=== PATIENT | male | born 1975 | race Caucasian/White ===

== ENCOUNTER 2016-10-16 07:58 | Outpatient (CLI) | payer BC ==
[~2016-10-16] VITALS: Ht 172.7 cm; Wt 56.8 kg
[~2016-10-16 07:58] MED LIST: ASACOL; ASACOL HD800 MG PO; AZULFIDINE PO; BALSALAZIDE DI750 MG PO; BENADRYL25 M1 PO; BENADRYL25 M2 PO; IMURAN50 MG PO; LOMOTIL 0.025 M1 TAB PO; PREDNISONE20 MG PO; TYLENOL 500MG500 MG PO
[2016-10-16 09:01] LABS: HEMATOCRIT 44.3 % (42.0-52.0); HEMOGLOBIN 14.8 g/dl (13.5-18.0); MEAN CELL VOLUME 104 fl (80.0-100.0); MEAN CORPUSCULAR HEMOGLOBIN 35 pg (27.0-31.0); MEAN CORPUSCULAR HGB CONC 33 g/dl (33.0-37.0); MEAN PLATELET VOLUME 10.5 fl (7.4-10.4); PLATELET COUNT 215 K/mm3 (130-400); RED BLOOD COUNT 4.28 M/mm3 (4.20-5.60); REDCELL DISTRIBUTION WIDTH-CV 13.5 % (11.5-14.5); WHITE BLOOD COUNT 6.1 K/mm3 (4.8-10.8)
[2016-10-16 09:15] LABS: ADJUSTED CALCIUM 9.7 mg/dL (8.4-10.2); ALBUMIN 4.5 gm/dL (3.5-5.0); BILIRUBIN,TOTAL 1.3 mg/dL (0.0-1.0); CALCIUM 10.1 mg/dL (8.4-10.2); CREATININE, serum 0.72 mg/dL (0.66-1.25); POTASSIUM 3.8 mmol/L (3.4-5.0); TOTAL PROTEIN 8.5 gm/dL (6.4-8.2)
[2016-10-16 09:38] VITALS: BP 108/60; PULSE 79; TEMP 97.9
[2016-10-16 10:15] VITALS: BP 104/58; PULSE 78; TEMP 98.4
[2016-10-16 10:52] VITALS: BP 110/61; PULSE 79; TEMP 98.6
[2016-10-16 11:30] VITALS: BP 101/70; PULSE 80
[2016-10-16 11:49] VITALS: BP 90/52; PULSE 78; TEMP 98.2
== END 2016-10-16 12:38 | disposition home or self-care (01) ==
LOC: EUO 07:58
PROVIDERS: Internal Medicine Gastroenterology
DX: K50.90 Crohn's disease, unspecified, without complications (principal)
CPT/HCPCS: J1200; J1745; J2930; J7050

== ENCOUNTER 2016-12-11 07:41 | Outpatient (CLI) | payer BC ==
[~2016-12-11] VITALS: Ht 172.7 cm; Wt 56.8 kg
[2016-12-11 08:03] LABS: HEMATOCRIT 41.3 % (42.0-52.0); HEMOGLOBIN 14.2 g/dl (13.5-18.0); MEAN CELL VOLUME 102 fl (80.0-100.0); MEAN CORPUSCULAR HEMOGLOBIN 35 pg (27.0-31.0); MEAN CORPUSCULAR HGB CONC 34 g/dl (33.0-37.0); MEAN PLATELET VOLUME 10.8 fl (7.4-10.4); PLATELET COUNT 197 K/mm3 (130-400); RED BLOOD COUNT 4.06 M/mm3 (4.20-5.60); REDCELL DISTRIBUTION WIDTH-CV 12.9 % (11.5-14.5); WHITE BLOOD COUNT 4.3 K/mm3 (4.8-10.8)
[2016-12-11 08:21] LABS: ADJUSTED CALCIUM 9.3 mg/dL (8.4-10.2); ALBUMIN 4.4 gm/dL (3.5-5.0); BILIRUBIN,TOTAL 1.4 mg/dL (0.0-1.0); CALCIUM 9.6 mg/dL (8.4-10.2); CREATININE, serum 0.72 mg/dL (0.66-1.25); POTASSIUM 4.1 mmol/L (3.4-5.0)
[2016-12-11 08:45] VITALS: BP 104/62; PULSE 78; TEMP 98.3
[2016-12-11 09:15] VITALS: BP 108/67; PULSE 71; TEMP 97.3
[2016-12-11 09:45] VITALS: BP 102/63; PULSE 67; TEMP 98
[2016-12-11 10:15] VITALS: BP 107/65; PULSE 70; TEMP 97.9
[2016-12-11 10:45] VITALS: BP 97/62; PULSE 78; TEMP 97.8
== END 2016-12-11 11:15 | disposition home or self-care (01) ==
LOC: EUO 07:41
PROVIDERS: Internal Medicine Gastroenterology
DX: K50.90 Crohn's disease, unspecified, without complications (principal)
CPT/HCPCS: J1200; J1745; J2930; J7050

== ENCOUNTER 2017-02-05 07:56 | Outpatient (CLI) | payer BC ==
[~2017-02-05] VITALS: Ht 172.7 cm; Wt 60.0 kg
[2017-02-05 08:21] LABS: HEMATOCRIT 43.5 % (42.0-52.0); HEMOGLOBIN 14.8 g/dl (13.5-18.0); MEAN CELL VOLUME 102 fl (80.0-100.0); MEAN CORPUSCULAR HEMOGLOBIN 35 pg (27.0-31.0); MEAN CORPUSCULAR HGB CONC 34 g/dl (33.0-37.0); PLATELET COUNT 199 K/mm3 (130-400); RED BLOOD COUNT 4.28 M/mm3 (4.20-5.60); REDCELL DISTRIBUTION WIDTH-CV 13.2 % (11.5-14.5)
[2017-02-05 08:31] LABS: ADJUSTED CALCIUM 9.6 mg/dL (8.4-10.2); ALBUMIN 4.2 gm/dL (3.5-5.0); BILIRUBIN,TOTAL 1.4 mg/dL (0.0-1.0); CALCIUM 9.8 mg/dL (8.4-10.2); CREATININE, serum 0.72 mg/dL (0.66-1.25); POTASSIUM 4.1 mmol/L (3.4-5.0); TOTAL PROTEIN 7.7 gm/dL (6.4-8.2)
[2017-02-05 09:10] VITALS: BP 102/59; PULSE 76; TEMP 97.7
[2017-02-05 09:35] VITALS: BP 103/61; PULSE 67; TEMP 98
[2017-02-05 10:10] VITALS: BP 109/61; PULSE 71; TEMP 98
[2017-02-05 10:40] VITALS: BP 99/56; PULSE 70; TEMP 97.9
[2017-02-05 11:10] VITALS: BP 9/50; PULSE 70; TEMP 98
== END 2017-02-05 12:14 | disposition home or self-care (01) ==
LOC: EUO 07:56
PROVIDERS: Internal Medicine Gastroenterology
DX: K50.90 Crohn's disease, unspecified, without complications (principal)
CPT/HCPCS: J1200; J1745; J2930; J7050

== ENCOUNTER 2017-04-02 08:03 | Outpatient (CLI) | payer BC ==
[~2017-04-02] VITALS: Ht 172.7 cm; Wt 57.8 kg
[2017-04-02 09:14] LABS: HEMATOCRIT 42.2 % (42.0-52.0); HEMOGLOBIN 14.3 g/dl (13.5-18.0); MEAN CELL VOLUME 103 fl (80.0-100.0); MEAN CORPUSCULAR HEMOGLOBIN 35 pg (27.0-31.0); MEAN CORPUSCULAR HGB CONC 34 g/dl (33.0-37.0); MEAN PLATELET VOLUME 10.7 fl (7.4-10.4); PLATELET COUNT 197 K/mm3 (130-400); RED BLOOD COUNT 4.11 M/mm3 (4.20-5.60); REDCELL DISTRIBUTION WIDTH-CV 13.6 % (11.5-14.5); WHITE BLOOD COUNT 4.9 K/mm3 (4.8-10.8)
[2017-04-02 09:20] LABS: ALBUMIN 4.4 gm/dL (3.5-5.0); BILIRUBIN,TOTAL 1.2 mg/dL (0.0-1.0); CALCIUM 9.3 mg/dL (8.4-10.2); CREATININE, serum 0.7 mg/dL (0.66-1.25); POTASSIUM 4.1 mmol/L (3.4-5.0); TOTAL PROTEIN 7.7 gm/dL (6.4-8.2)
[2017-04-02 10:15] VITALS: BP 100/63; PULSE 78; TEMP 98.2
[2017-04-02 10:30] VITALS: BP 104/66; PULSE 69; TEMP 98.2
[2017-04-02 11:00] VITALS: BP 102/57; PULSE 72; TEMP 98.4
[2017-04-02 12:10] VITALS: BP 100/54; PULSE 74; TEMP 97.7
[2017-04-02 12:30] VITALS: BP 100/56; PULSE 71; TEMP 98.7
== END 2017-04-02 12:40 | disposition home or self-care (01) ==
LOC: EUO 08:03
PROVIDERS: Physician Assistant
DX: K50.90 Crohn's disease, unspecified, without complications (principal); Z79.899 Other long term (current) drug therapy
CPT/HCPCS: J1200; J1745; J2930; J7050

== ENCOUNTER 2017-05-28 09:48 | Outpatient (CLI) | payer BC ==
[~2017-05-28] VITALS: Ht 172.7 cm; Wt 57.3 kg
[2017-05-28 10:13] LABS: HEMOGLOBIN 14.6 g/dl (13.5-18.0); MEAN CELL VOLUME 103 fl (80.0-100.0); MEAN CORPUSCULAR HEMOGLOBIN 35 pg (27.0-31.0); MEAN CORPUSCULAR HGB CONC 34 g/dl (33.0-37.0); MEAN PLATELET VOLUME 10.4 fl (7.4-10.4); PLATELET COUNT 260 K/mm3 (130-400); RED BLOOD COUNT 4.19 M/mm3 (4.20-5.60); REDCELL DISTRIBUTION WIDTH-CV 13.3 % (11.5-14.5); WHITE BLOOD COUNT 5.3 K/mm3 (4.8-10.8)
[2017-05-28 10:20] LABS: ALBUMIN 4.7 gm/dL (3.5-5.0); BILIRUBIN,TOTAL 1.5 mg/dL (0.0-1.0); CALCIUM 9.6 mg/dL (8.4-10.2); CREATININE, serum 0.73 mg/dL (0.66-1.25); POTASSIUM 4.2 mmol/L (3.4-5.0); TOTAL PROTEIN 8.2 gm/dL (6.4-8.2)
[2017-05-28 11:32] VITALS: BP 112/67; PULSE 74; TEMP 97.9
[2017-05-28 12:00] VITALS: BP 103/62; PULSE 72
[2017-05-28 12:30] VITALS: BP 101/63; PULSE 77
[2017-05-28 13:00] VITALS: BP 102/61; PULSE 72
== END 2017-05-29 07:35 | disposition home or self-care (01) ==
LOC: EUO 09:48
PROVIDERS: Physician Assistant
DX: K50.90 Crohn's disease, unspecified, without complications (principal); Z79.899 Other long term (current) drug therapy
CPT/HCPCS: J1200; J1745; J2930; J7050

== ENCOUNTER → 2017-07-24 | Outpatient (CLI) | payer OTHER ==
[~2017-07-24] VITALS: Ht 172.7 cm; Wt 57.6 kg
[2017-07-24 14:21] LABS: HEMOGLOBIN 14.1 g/dl (13.5-18.0); MEAN CELL VOLUME 104 fl (80.0-100.0); MEAN CORPUSCULAR HEMOGLOBIN 35 pg (27.0-31.0); MEAN CORPUSCULAR HGB CONC 34 g/dl (33.0-37.0); PLATELET COUNT 206 K/mm3 (130-400); RED BLOOD COUNT 4.03 M/mm3 (4.20-5.60); WHITE BLOOD COUNT 4.6 K/mm3 (4.8-10.8)
[2017-07-24 14:52] LABS: ADJUSTED CALCIUM 9.1 mg/dL (8.4-10.2); ALBUMIN 4.6 gm/dL (3.5-5.0); BILIRUBIN,TOTAL 1.3 mg/dL (0.0-1.0); CALCIUM 9.6 mg/dL (8.4-10.2); CREATININE, serum 0.88 mg/dL (0.66-1.25); POTASSIUM 4.3 mmol/L (3.4-5.0); TOTAL PROTEIN 7.8 gm/dL (6.4-8.2)
[2017-07-24 15:50] VITALS: BP 104/60; PULSE 78; TEMP 97.9
[2017-07-24 16:20] VITALS: BP 96/59; PULSE 70; TEMP 97.8
[2017-07-24 16:50] VITALS: BP 102/58; PULSE 77; TEMP 98.1
[2017-07-24 17:20] VITALS: BP 107/50; PULSE 77; TEMP 98
[2017-07-24 17:50] VITALS: BP 107/60; PULSE 77; TEMP 97.9
== END ==
LOC: EUO 13:53
PROVIDERS: Physician Assistant
DX: K50.90 Crohn's disease, unspecified, without complications (principal); Z79.899 Other long term (current) drug therapy
CPT/HCPCS: J1200; J1745; J2930; J7050

== ENCOUNTER 2017-09-18 14:01 | Outpatient (CLI) | payer OTHER ==
[2017-09-18] VITALS (7 sets, daily range): BP systolic 93–104; BP diastolic 55–66; PULSE 73–84; TEMP 97.8–97.9
[~2017-09-18] VITALS: Ht 172.7 cm; Wt 58.7 kg
[2017-09-18 14:23] LABS: HEMATOCRIT 43.4 % (42.0-52.0); HEMOGLOBIN 14.7 g/dl (13.5-18.0); MEAN CELL VOLUME 103 fl (80.0-100.0); MEAN CORPUSCULAR HEMOGLOBIN 35 pg (27.0-31.0); MEAN CORPUSCULAR HGB CONC 34 g/dl (33.0-37.0); MEAN PLATELET VOLUME 10.8 fl (7.4-10.4); PLATELET COUNT 197 K/mm3 (130-400); RED BLOOD COUNT 4.23 M/mm3 (4.20-5.60); WHITE BLOOD COUNT 4.2 K/mm3 (4.8-10.8)
[2017-09-18 14:31] LABS: ALBUMIN 4.7 gm/dL (3.5-5.0); BILIRUBIN,TOTAL 1.3 mg/dL (0.0-1.0); CALCIUM 9.6 mg/dL (8.4-10.2); CREATININE, serum 0.92 mg/dL (0.66-1.25); POTASSIUM 3.9 mmol/L (3.4-5.0)
== END 2017-09-18 18:44 | disposition home or self-care (01) ==
LOC: EUO 14:01
PROVIDERS: Physician Assistant
DX: K50.90 Crohn's disease, unspecified, without complications (principal); Z79.899 Other long term (current) drug therapy
CPT/HCPCS: J1200; J1745; J2930; J7050

== ENCOUNTER 2018-01-01 09:51 | Outpatient (CLI) | payer OTHER ==
[~2018-01-01] VITALS: Ht 172.7 cm; Wt 56.8 kg
[~2018-01-01 09:51] MED LIST changes: +IMURAN 50MG TAB50 MG PO; -IMURAN50 MG PO
[2018-01-01 10:53] LABS: HEMATOCRIT 44.7 % (42.0-52.0); HEMOGLOBIN 14.9 g/dl (13.5-18.0); MEAN CELL VOLUME 105 fl (80.0-100.0); MEAN CORPUSCULAR HEMOGLOBIN 35 pg (27.0-31.0); MEAN CORPUSCULAR HGB CONC 33 g/dl (33.0-37.0); MEAN PLATELET VOLUME 9.9 fl (7.4-10.4); PLATELET COUNT 207 K/mm3 (130-400); RED BLOOD COUNT 4.26 M/mm3 (4.20-5.60); REDCELL DISTRIBUTION WIDTH-CV 13.2 % (11.5-14.5)
[2018-01-01 11:01] LABS: BILIRUBIN,TOTAL 0.8 mg/dL (0.0-1.0); CALCIUM 9.2 mg/dL (8.4-10.2); CREATININE, serum 0.73 mg/dL (0.66-1.25); POTASSIUM 3.9 mmol/L (3.4-5.0); TOTAL PROTEIN 7.4 gm/dL (6.4-8.2)
[2018-01-01 11:55] VITALS: BP 119/74; PULSE 74; TEMP 97.9
[2018-01-01 12:25] VITALS: BP 112/69; PULSE 72; TEMP 98.1
[2018-01-01 12:55] VITALS: BP 117/66; PULSE 80; TEMP 98.2
[2018-01-01 13:25] VITALS: BP 107/62; PULSE 77; TEMP 98.4
[2018-01-01 13:59] VITALS: BP 115/66; PULSE 80; TEMP 98.2
== END 2018-01-01 15:24 | disposition home or self-care (01) ==
LOC: EUO 09:51
PROVIDERS: Internal Medicine Gastroenterology
DX: K50.90 Crohn's disease, unspecified, without complications (principal); Z79.899 Other long term (current) drug therapy
CPT/HCPCS: J1200; J1745; J2920; J7050; Q5102-ZB

== ENCOUNTER 2018-03-12 09:39 | Outpatient (CLI) | payer OTHER ==
[~2018-03-12] VITALS: Ht 165.1 cm; Wt 58.2 kg
[2018-03-12 10:04] VITALS: BP 112/65; PULSE 76; TEMP 98.1
[2018-03-12 10:33] LABS: HEMATOCRIT 41.2 % (42.0-52.0); HEMOGLOBIN 14.1 g/dl (13.5-18.0); MEAN CELL VOLUME 99 fl (80.0-100.0); MEAN CORPUSCULAR HEMOGLOBIN 34 pg (27.0-31.0); MEAN CORPUSCULAR HGB CONC 34 g/dl (33.0-37.0); MEAN PLATELET VOLUME 10.6 fl (7.4-10.4); PLATELET COUNT 211 K/mm3 (130-400); RED BLOOD COUNT 4.18 M/mm3 (4.20-5.60); REDCELL DISTRIBUTION WIDTH-CV 12.4 % (11.5-14.5)
[2018-03-12 10:41] LABS: ALBUMIN 3.9 gm/dL (3.5-5.0); BILIRUBIN,TOTAL 0.9 mg/dL (0.0-1.0); CALCIUM 9.5 mg/dL (8.4-10.2); CREATININE, serum 0.84 mg/dL (0.66-1.25); POTASSIUM 4.2 mmol/L (3.4-5.0); TOTAL PROTEIN 7.5 gm/dL (6.4-8.2)
[2018-03-12 11:14] VITALS: BP 145/52; PULSE 66; TEMP 98
[2018-03-12 11:15] VITALS: BP 177/100; PULSE 89; TEMP 98
[2018-03-12 11:30] VITALS: BP 146/54; BP 175/110; PULSE 73; PULSE 90; TEMP 98
[2018-03-12 12:00] VITALS: BP 141/55; BP 173/102; PULSE 66; PULSE 88; TEMP 98
== END 2018-03-12 14:00 | disposition home or self-care (01) ==
LOC: EUO 09:39
PROVIDERS: Physician Assistant
DX: K50.90 Crohn's disease, unspecified, without complications (principal); Z79.899 Other long term (current) drug therapy
CPT/HCPCS: J1200; J2930; J7050; Q5103

== ENCOUNTER 2018-05-13 10:48 | Outpatient (CLI) | payer OTHER ==
[~2018-05-13] VITALS: Ht 165.1 cm; Wt 58.1 kg
[2018-05-13 11:17] LABS: HEMATOCRIT 44.6 % (42.0-52.0); HEMOGLOBIN 14.6 g/dl (13.5-18.0); MEAN CELL VOLUME 103 fl (80.0-100.0); MEAN CORPUSCULAR HEMOGLOBIN 34 pg (27.0-31.0); MEAN CORPUSCULAR HGB CONC 33 g/dl (33.0-37.0); MEAN PLATELET VOLUME 10.9 fl (7.4-10.4); PLATELET COUNT 221 K/mm3 (130-400); RED BLOOD COUNT 4.33 M/mm3 (4.20-5.60); REDCELL DISTRIBUTION WIDTH-CV 13.3 % (11.5-14.5)
[2018-05-13 11:22] LABS: ALBUMIN 4.7 gm/dL (3.5-5.0); BILIRUBIN,TOTAL 0.6 mg/dL (0.0-1.0); CALCIUM 9.4 mg/dL (8.4-10.2); CREATININE, serum 0.77 mg/dL (0.66-1.25); POTASSIUM 4.1 mmol/L (3.4-5.0); TOTAL PROTEIN 8.6 gm/dL (6.4-8.2)
[2018-05-13 12:28] VITALS: BP 116/77; PULSE 72; TEMP 97.9
[2018-05-13 12:58] VITALS: BP 112/74; PULSE 71; TEMP 97.1
[2018-05-13 13:40] VITALS: BP 104/66; PULSE 68
[2018-05-13 14:10] VITALS: BP 106/65; PULSE 61
== END 2018-05-13 14:45 | disposition home or self-care (01) ==
LOC: EUO 10:48
PROVIDERS: Internal Medicine Gastroenterology
DX: K50.90 Crohn's disease, unspecified, without complications (principal); Z79.899 Other long term (current) drug therapy
CPT/HCPCS: J1200; J2930; J7050

== ENCOUNTER 2018-09-02 12:58 | Outpatient (CLI) | payer OTHER ==
[~2018-09-02] VITALS: Ht 165.1 cm; Wt 59.4 kg
[2018-09-02 13:42] LABS: HEMATOCRIT 43.3 % (42.0-52.0); HEMOGLOBIN 14.5 g/dl (13.5-18.0); MEAN CELL VOLUME 101 fl (80.0-100.0); MEAN CORPUSCULAR HEMOGLOBIN 34 pg (27.0-31.0); MEAN CORPUSCULAR HGB CONC 34 g/dl (33.0-37.0); MEAN PLATELET VOLUME 9.9 fl (7.4-10.4); PLATELET COUNT 241 K/mm3 (130-400); RED BLOOD COUNT 4.31 M/mm3 (4.20-5.60); REDCELL DISTRIBUTION WIDTH-CV 13.2 % (11.5-14.5)
[2018-09-02 13:52] LABS: ALBUMIN 4.3 gm/dL (3.5-5.0); BILIRUBIN,TOTAL 0.6 mg/dL (0.0-1.0); CALCIUM 9.6 mg/dL (8.4-10.2); CREATININE, serum 0.72 mg/dL (0.66-1.25); POTASSIUM 4.3 mmol/L (3.4-5.0); TOTAL PROTEIN 7.9 gm/dL (6.4-8.2)
[2018-09-02 14:33] VITALS: BP 105/73; PULSE 80; TEMP 97.7
== END 2018-09-02 16:32 | disposition home or self-care (01) ==
LOC: EUO 12:58
PROVIDERS: Physician Assistant
DX: K50.90 Crohn's disease, unspecified, without complications (principal)
CPT/HCPCS: J1200; J2920; J7050; Q5103

== ENCOUNTER 2019-01-06 14:35 | Outpatient (CLI) | payer OTHER ==
[~2019-01-06] VITALS: Ht 165.1 cm; Wt 56.4 kg
[2019-01-06 15:31] LABS: HEMATOCRIT 41.3 % (42.0-52.0); HEMOGLOBIN 13.8 g/dl (13.5-18.0); MEAN CELL VOLUME 102 fl (80.0-100.0); MEAN CORPUSCULAR HEMOGLOBIN 34 pg (27.0-31.0); MEAN CORPUSCULAR HGB CONC 33 g/dl (33.0-37.0); MEAN PLATELET VOLUME 9.7 fl (7.4-10.4); PLATELET COUNT 304 K/mm3 (130-400); RED BLOOD COUNT 4.04 M/mm3 (4.20-5.60); REDCELL DISTRIBUTION WIDTH-CV 13.9 % (11.5-14.5)
[2019-01-06 15:47] LABS: ALBUMIN 4.1 gm/dL (3.5-5.0); BILIRUBIN,TOTAL 0.8 mg/dL (0.0-1.0); CALCIUM 9.5 mg/dL (8.4-10.2); CREATININE, serum 0.6 (0.66-1.25); TOTAL PROTEIN 7.8 gm/dL (6.4-8.2)
[2019-01-06 15:55] LABS: POTASSIUM 3.8 mmol/L (3.4-5.0)
[2019-01-06 16:47] VITALS: BP 117/68; PULSE 79; TEMP 98.2
[2019-01-06] MEDS ORDERED: PREDNISONE20 MG PO (16:56)
[2019-01-06 17:17] VITALS: BP 116/66; PULSE 78
[2019-01-06 17:47] VITALS: BP 108/67; PULSE 72; TEMP 98.2
[2019-01-06 18:17] VITALS: BP 116/63; PULSE 75; TEMP 98.4
--- NOTE | 2019-01-06 18:26 | NUR ---
Report given to Ana Melo.
== END 2019-03-11 09:27 | disposition home or self-care (01) ==
LOC: EUO 14:35
PROVIDERS: Internal Medicine Gastroenterology
DX: K50.90 Crohn's disease, unspecified, without complications (principal); Z79.899 Other long term (current) drug therapy
CPT/HCPCS: J1200; J1745; J7050

== ENCOUNTER → 2019-02-25 | Outpatient (CLI) | payer OTHER | LOC: COL.RAD 07:30 | DX: C18.9 Malignant neoplasm of colon, unspecified (principal); C19 Malignant neoplasm of rectosigmoid junction; K51.90 Ulcerative colitis, unspecified, without complications; K92.1 Melena; K62.89 Other specified diseases of anus and rectum; R59.0 Localized enlarged lymph nodes; R16.0 Hepatomegaly, not elsewhere classified | CPT/HCPCS: Q9967 ==

== ENCOUNTER 2019-05-28 16:13 | Inpatient (IN) | payer OTHER ==
[~2019-05-28] VITALS: Ht 167.6 cm; Wt 50.3 kg
[2019-05-28] VITALS (153 sets, daily range): BP systolic 97–106; BP diastolic 60–63; PULSE 113–122; TEMP 99.1–102.3; O2SAT 66–100
[2019-05-28 16:56] LABS: HEMOGLOBIN 10.9 g/dl (13.5-18.0); MEAN CELL VOLUME 98 fl (80.0-100.0); MEAN CORPUSCULAR HEMOGLOBIN 32 pg (27.0-31.0); MEAN CORPUSCULAR HGB CONC 32 g/dl (33.0-37.0); MEAN PLATELET VOLUME 9.5 fl (7.4-10.4); PLATELET COUNT 170 K/mm3 (130-400); RED BLOOD COUNT 3.46 M/mm3 (4.20-5.60); REDCELL DISTRIBUTION WIDTH-CV 15.5 % (11.5-14.5)
[2019-05-28 17:12] LABS: BILIRUBIN,TOTAL 0.4 mg/dL (0.0-1.0); CALCIUM 9.4 mg/dL (8.4-10.2); CREATININE, serum 1.07 (0.66-1.25); POTASSIUM 3.8 mmol/L (3.4-5.0)
[2019-05-28] MEDS ORDERED: DAZIDOX10 MG PO (17:19)
[2019-05-28] MEDS ORDERED: TYLENOL 500MG500 MG PO (17:20)
[2019-05-28] MEDS ORDERED: FLEXERIL 1010 MG/TAB PO (17:20)
[2019-05-28] MEDS ORDERED: NEURONTIN300 MG/CAP PO (17:21)
[2019-05-28 17:24] LABS: HEMATOCRIT 33.9 % (42.0-52.0)
[2019-05-28 18:18] LABS: BAND 6 % (0-10); LYMPHOCYTE 7 % (20.0-51.0); METAMYELOCYTE 1 % (0-0); NEUTROPHILS 86 % (42.0-75.2); PLATELET ESTIMATE NORMAL (NORMAL)
[2019-05-28 18:20] LABS: TEAR DROP CELLS 1+
--- NOTE | 2019-05-28 20:21 | NUR ---
Dr. Julian butler. Orders as entered CPOE.
[2019-05-28 20:55] LABS: COLLECTION METHOD CLEAN CATCH
[2019-05-28 21:18] LABS: MUCOUS Present /lpf; PH 5 (5-8); SQUAMOUS EPITHELIAL 0-2 /hpf; URINE APPEARANCE Clear; URINE BACTERIA None Seen /hpf; URINE BILIRUBIN Negative (NEGATIVE); URINE BLOOD Negative (NEGATIVE); URINE COLOR Yellow; URINE GLUCOSE Negative (NEGATIVE); URINE KETONE Negative (NEGATIVE); URINE LEUKOCYTE ESTERASE Negative (NEGATIVE); URINE NITRATE Negative (NEGATIVE); URINE PROTEIN(semi-quant) Negative (NEGATIVE); URINE RBC 0-2 /hpf; URINE UROBILINOGEN Negative (NEGATIVE)
[2019-05-29] VITALS (763 sets, daily range): BP systolic 112–141; BP diastolic 68–81; PULSE 80–110; TEMP 99.2–100; O2SAT 52–100
[2019-05-29 05:16] LABS: HEMOGLOBIN 10.1 g/dl (13.5-18.0); MEAN CELL VOLUME 100 fl (80.0-100.0); MEAN CORPUSCULAR HEMOGLOBIN 32 pg (27.0-31.0); MEAN CORPUSCULAR HGB CONC 32 g/dl (33.0-37.0); MEAN PLATELET VOLUME 9.4 fl (7.4-10.4); PLATELET COUNT 156 K/mm3 (130-400); RED BLOOD COUNT 3.17 M/mm3 (4.20-5.60); REDCELL DISTRIBUTION WIDTH-CV 16.4 % (11.5-14.5)
[2019-05-29 05:24] LABS: ALBUMIN 3.3 gm/dL (3.5-5.0); BILIRUBIN,TOTAL 0.4 mg/dL (0.0-1.0); CALCIUM 8.9 mg/dL (8.4-10.2); CREATININE, serum 1.14 (0.66-1.25); POTASSIUM 4.4 mmol/L (3.4-5.0)
[2019-05-29 05:33] LABS: HEMATOCRIT 31.7 % (42.0-52.0)
[2019-05-29 05:55] LABS: BAND 31 % (0-10); LYMPHOCYTE 2 % (20.0-51.0); NEUTROPHILS 65 % (42.0-75.2)
[2019-05-29 05:56] LABS: ANISOCYTOSIS 1+; PLATELET ESTIMATE NORMAL (NORMAL)
--- NOTE | 2019-05-29 06:32 | NUR ---
Vancomycin Initial Dosing Pharmacy Note Ordering provider: Alan Jordan MD Indication/duration: severe sepsis with unknown cause Relevant comorbidities: colorectal CA with mets on chemotherapy LABS: Febrile (Tmax 102.9F), WBC 24.1, SCr 1.14, CrCl~54, GFR 70 MICRO: Blood cx pending Recommendation: Vancomycin 750 mg IV q12h (~15 mg/kg/dose). Will check Vancomycin trough level prior to 4th total dose on 05/30/19 @0630. Pharmacy will continue to monitor. Loading dose: 1 gm x1 Maintenance dose: 750 mg every 12 hours Trough goal: 15-20 ug/mL
--- NOTE | 2019-05-29 08:30 | NUR ---
PT SUDDENLY BEGAN VOMITING. DR BROWNING NOTIFIED IN ORDER TO OBTAIN ANTIEMETIC MEDICATION. JACQUE ORDERED.
--- NOTE | 2019-05-29 09:36 | NUR ---
PT HAS COLOSTOMY BAG PRESENT TO LEFT LOWER QUAD OF ABD HE CARES FOR HIMSELF INDEPENDENTLY. STOOL IS SOFT BROWN.
--- NOTE | 2019-05-29 12:13 | NUR ---
SW met with patient to discuss discharge planning. Patient lives independently at home with his . Patient's PCP is Dr Riddle here in [place]. Patient's preferred pharmacy is [facility]. Patient and deny diddiculties otaining or paying for medications. Patient reports he has an ostomy bag and supplies. Patient has a cane but does not use it often. Patient is independent with ADLs and cares for his ostomy bag on his own. Patient does not use any home health services. Patient reports he is in the process of completing advanced directive/DPOA-HC. SW does not anticipate any discharge needs but will continue to follow.
--- NOTE | 2019-05-29 18:09 | NUR ---
PT CONTINUES TO BE RECEIVING DIALYSIS IN IMCU ROOM 17
--- NOTE | 2019-05-29 20:49 | NUR ---
PT ALERT AND ORIENTED X4, COMPLAINS OF PAIN 7/10 IN MID ABDOMEN. PRN DILAUDID GIVEN. PT ALSO NAUSEATED AND VOMITED, PRN ZOFRAN GIVEN WELL. PT ON ROOM AIR, INDEPENDENT TO BATHROOM WITH STANDBY ASSIST. PT DRAINS LLQ COLOSTOMY INDEPENDENTLY. PT COMPLAINING OF DILAUDID 0.5 MG NOT WORKING, REQUESTING IF HE COULD GET 1 MG INSTEAD, DR. GONZALES NOTIFIED AND ORDERED 1 MG Q2HR PRN. WILL CONTINUE TO MONITOR PT.
[2019-05-30] VITALS (628 sets, daily range): BP systolic 126–134; BP diastolic 82–92; PULSE 61–99; TEMP 98–98.9; O2SAT 75–100
[2019-05-30 05:17] LABS: MEAN CELL VOLUME 99 fl (80.0-100.0); MEAN CORPUSCULAR HEMOGLOBIN 31 pg (27.0-31.0); MEAN CORPUSCULAR HGB CONC 31 g/dl (33.0-37.0); PLATELET COUNT 136 K/mm3 (130-400); REDCELL DISTRIBUTION WIDTH-CV 16.4 % (11.5-14.5)
[2019-05-30 05:19] LABS: HEMATOCRIT 31.8 % (42.0-52.0)
[2019-05-30 05:27] LABS: ALBUMIN 3.1 gm/dL (3.5-5.0); BILIRUBIN,TOTAL 0.5 mg/dL (0.0-1.0); CALCIUM 8.9 mg/dL (8.4-10.2); CREATININE, serum 0.96 (0.66-1.25); POTASSIUM 3.9 mmol/L (3.4-5.0); TOTAL PROTEIN 6.7 gm/dL (6.4-8.2)
[2019-05-30 05:31] LABS: ANISOCYTOSIS 1+; BAND 8 % (0-10); BASOPHIL 1 % (0-2); HYPOCHROMIA 1+; LYMPHOCYTE 4 % (20.0-51.0); NEUTROPHILS 85 % (42.0-75.2); PLATELET ESTIMATE NORMAL (NORMAL)
[2019-05-30 05:32] LABS: OVALOCYTES 1+; SPHEROCYTE 1+
--- NOTE | 2019-05-30 07:43 | NUR ---
VANCT TGH = 12.5 W/750 Q12H INCREASE DOSE TO 1GM Q12H SCR = 0.9 CRCL~65 ML/MIN
--- NOTE | 2019-05-30 07:44 | NUR ---
VANC TGH = 12.5 W/750MG Q12H WILL INCREASE DOSE TO 1GM Q12H SCR 0.9 CRCL~65
--- NOTE | 2019-05-30 10:10 | NUR ---
Initial visit attempt; Patient sleeping, Tray Packer will keep Brenden in her prayers.
--- NOTE | 2019-05-30 11:02 | NUR ---
MD Thuy updated via telephone
--- NOTE | 2019-05-30 13:19 | NUR ---
TARYN attended clinical rounds. Dr Manzano is consulting the infectious disease doctor to give recommendations for antibiotics and GI. Patient is currently receiving chemo treatments and his oncologist is Dr Cottrell. PT and OT will also evaluate patient. TARYN followed up with patient and about discharge plan. SW offered to contact patient's insurance to inquire about his home health benefits. Patient and are agreeable. Patient reports he does not feel that he needs home health services at this time but would like a list of a companies to review with his later today. Patient is not interested in being set up with home health at the time of discharge but will look into home health for the furture. TARYN contacted patient's insurance and obtained home health benefit info for patient. TARYN reported to patient that home health is currently covered at 100%. TARYN will continue to follow.
[2019-05-31] VITALS (379 sets, daily range): BP systolic 109–142; BP diastolic 64–90; PULSE 69–91; TEMP 97.9–99.1; O2SAT 59–100
[2019-05-31 05:22] LABS: BASO # 0.1 (0.0-0.2); BASO % 0.3 % (0.0-2.0); EOS # 0.2 (0.0-0.7); EOS % 1.4 % (0-4.0); GRAN # 13.1 (1.4-6.5); GRAN % 83.6 % (42.2-75.2); HEMATOCRIT 31.8 % (42.0-52.0); HEMOGLOBIN 10.1 g/dl (13.5-18.0); LYMPH % 6.1 % (20.0-51.0); MEAN CELL VOLUME 98 fl (80.0-100.0); MEAN CORPUSCULAR HEMOGLOBIN 31 pg (27.0-31.0); MEAN CORPUSCULAR HGB CONC 32 g/dl (33.0-37.0); MEAN PLATELET VOLUME 9.4 fl (7.4-10.4); MONO # 1.2 (0.1-0.6); MONO % 7.8 % (1.7-9.3); PLATELET COUNT 138 K/mm3 (130-400); RED BLOOD COUNT 3.24 M/mm3 (4.20-5.60); REDCELL DISTRIBUTION WIDTH-CV 16.5 % (11.5-14.5)
[2019-05-31 05:33] LABS: ALBUMIN 3.2 gm/dL (3.5-5.0); BILIRUBIN,TOTAL 0.5 mg/dL (0.0-1.0); CALCIUM 8.9 mg/dL (8.4-10.2); CREATININE, serum 0.95 (0.66-1.25); POTASSIUM 3.8 mmol/L (3.4-5.0); TOTAL PROTEIN 6.6 gm/dL (6.4-8.2)
--- NOTE | 2019-05-31 05:49 | NUR ---
AM WHOLE BLOOD GLUCOSE RESULTS AT 58. PATIENT IS ALERT ORIENTED AND TALKING. HE DENIES NAUSEA OR DIZZINESS. HE IS PROVIDED ORANGE JUICE AND PLAN TO RECHECK FSBS MADE.
--- NOTE | 2019-05-31 06:20 | NUR ---
PATIENT FSBS COMPLETED WITH RESULT OF 59. PATIENT REMAINS ASYMPTOMATIC AND STATES HE ONLY JUST FINISHED PROVIDED ORANGE JUICE. WILL RECHECK IN 15 MINUTES.
--- NOTE | 2019-05-31 08:00 | NUR ---
Shift assessment complete at this time. Plan of care reviewed at bedside with patient. Additional time taken to address any other needs or concerns. Vitals stable at this time. Pt reports moderate pain at pain goal of 5 and declines further intervention at this time. Pt denies any other discomforts. Bed in low position, call light within reach, will continue to monitor.
--- NOTE | 2019-05-31 10:56 | NUR ---
Visited the patient; provided spiritual care and prayed with him,
--- NOTE | 2019-05-31 13:10 | NUR ---
PT ADMITTED TO FLOOR AT THIS TIME. THIS NURSE ADMINISTERED DILADID REQUESTED. PT STILL HAS C/O NAUSEA, INFORMED HIM THAT HE COULD GET SOME PHENAGREN IF THE NAUSEA DOESNT SUBSIDE. NO OTHER NEEDS VOICED AT THIS TIME.
--- NOTE | 2019-05-31 19:00 | NUR ---
PT HAS NEEDED A COUPLE OF DOSES OF DILIADID THIS SHIFT. PREMEDICATED PT WITH ZOFRAN PER REQUEST. THIS NURSE REQUESTED THE DIRECTOR OF HOTEL OPERATIONS TO RECHECK PT BLOOD SUGAR TO ENSURE IT WAS WNL, WAS APPROX 170'S. ABX STARTED THIS EVENING. THIS NURSE RECIEVED CALL FROM LAB ABOUT BLOOD CULTURES, LABORATORY MONITOR NURSE INFOMRED, ASKED NURSE IF SHE COULD PASS IT ON TONIGHT. PT HAD NO OTHER ISSUES OR CONCERNS VOICED.
--- NOTE | 2019-05-31 21:00 | NUR ---
Pt sitting on stool in bathroom. States he is fine. at bedside. Port a cath to upper right chest. IV fluids of D5 1/2NS infusing at 75mL/hr.Voices no c/o. Call light within reach. Will continue to follow.
--- NOTE | 2019-06-01 00:23 | NUR ---
Pt c/o some spasms thruout his colon. Request his Flexeril. Given after Zofran 4mg IV given. Very anxious with his heparin injection. Becomes a little nauseated but let him know that I had just given him his nausea medicine. at bedside.
[2019-06-01 04:00] VITALS: BP 133/79; PULSE 78; TEMP 97.8
--- NOTE | 2019-06-01 04:05 | NUR ---
Pt asleep. Hung antibiotics. Awakens for VS. Denies any needs at present. Call light in reach.
[2019-06-01 06:16] LABS: HEMOGLOBIN 10.5 g/dl (13.5-18.0); MEAN CELL VOLUME 97 fl (80.0-100.0); MEAN CORPUSCULAR HEMOGLOBIN 31 pg (27.0-31.0); MEAN CORPUSCULAR HGB CONC 32 g/dl (33.0-37.0); MEAN PLATELET VOLUME 9.6 fl (7.4-10.4); PLATELET COUNT 143 K/mm3 (130-400); RED BLOOD COUNT 3.36 M/mm3 (4.20-5.60); REDCELL DISTRIBUTION WIDTH-CV 16.4 % (11.5-14.5)
[2019-06-01 06:21] LABS: HEMATOCRIT 32.5 % (42.0-52.0)
[2019-06-01 06:32] LABS: ALBUMIN 3.5 gm/dL (3.5-5.0); BILIRUBIN,TOTAL 0.4 mg/dL (0.0-1.0); CREATININE, serum 0.89 (0.66-1.25); MAGNESIUM 1.8 mg/dL (1.6-2.3); POTASSIUM 3.1 mmol/L (3.4-5.0); TOTAL PROTEIN 7.1 gm/dL (6.4-8.2)
[2019-06-01 07:22] LABS: ANISOCYTOSIS 2+; BAND 1 % (0-10); EOSINOPHIL 4 % (0-4); LYMPHOCYTE 19 % (20.0-51.0); NEUTROPHILS 73 % (42.0-75.2); NUCLEATED RED BLOOD CELL 1 (0-6); PLATELET ESTIMATE NORMAL (NORMAL)
[2019-06-01 08:38] VITALS: BP 121/77; PULSE 77; TEMP 98.2
[2019-06-01 12:00] LABS: PLEURAL FLUID RBC 1000 /mm3 (0-0); PLEURAL FLUID WBC 514 /mm3
[2019-06-01 12:01] LABS: PLEURAL FLUID APPEARANCE CLEAR; PLEURAL FLUID COLOR YELLOW
[2019-06-01 12:12] LABS: GLUCOSE,PLEURAL FLUID 93 mg/dL; TOTAL PROTEIN,PLEURAL FLUID 4.1 gm/dL
[2019-06-01 15:48] VITALS: BP 127/88; PULSE 79; TEMP 98.5
[2019-06-01 19:02] VITALS: BP 119/73; PULSE 82; TEMP 98.1
--- NOTE | 2019-06-01 19:57 | NUR ---
PT HAD A THOROCENTESIS THIS AM, DR GALVEZ WAS ABLE TO GET 300ML OFF AND STATED HE THINKS THE PT HAD 200 LEFT IN HIS PLUREL CAVITIY BUT PT WAS BECOMING UNCOMFORTABLE SO PROCEDURE WAS CONCLUDED, PROVIDED STATED THAT HE WASNT WORRIED ABOUT THE LEFT OVER FLUID. PT HAD STILL NEEDED IV PAIN MEDS AND WAS PREMEDICATED WITH ANTI-NAUSEA MEDS REQUESTED. NO OTHER ISSUES OR CONCERNS VOICED.
--- NOTE | 2019-06-01 20:00 | NUR ---
Pt requesting pain med and nausea med. Both given. Shift assessment complete. Port still remains in upper right chest. Colostomy to left side abdomen. Pt takes care of his own colostomy care. Had thoracentesis today. Bandaid in place to mid right back. D5 1/2NS infusing thru port at 75mL/hr. at bedside. Call light within reach. Will continue to monitor.
[2019-06-01 23:48] VITALS: BP 123/80; PULSE 80; TEMP 98.3
[2019-06-02] VITALS (10 sets, daily range): BP systolic 105–136; BP diastolic 69–85; PULSE 62–84; TEMP 98.2–99.1
[2019-06-02 06:09] LABS: HEMOGLOBIN 10.3 g/dl (13.5-18.0); MEAN CELL VOLUME 98 fl (80.0-100.0); MEAN CORPUSCULAR HEMOGLOBIN 31 pg (27.0-31.0); MEAN CORPUSCULAR HGB CONC 32 g/dl (33.0-37.0); MEAN PLATELET VOLUME 9.4 fl (7.4-10.4); PLATELET COUNT 135 K/mm3 (130-400); RED BLOOD COUNT 3.28 M/mm3 (4.20-5.60); REDCELL DISTRIBUTION WIDTH-CV 16.6 % (11.5-14.5)
[2019-06-02 06:17] LABS: ALBUMIN 3.4 gm/dL (3.5-5.0); BILIRUBIN,TOTAL 0.3 mg/dL (0.0-1.0); CALCIUM 9.2 mg/dL (8.4-10.2); CREATININE, serum 0.94 (0.66-1.25); POTASSIUM 3.3 mmol/L (3.4-5.0)
[2019-06-02 06:19] LABS: HEMATOCRIT 32.2 % (42.0-52.0)
[2019-06-02 07:21] LABS: ANISOCYTOSIS 1+; EOSINOPHIL 2 % (0-4); HYPOCHROMIA 1+; LYMPHOCYTE 26 % (20.0-51.0); MYELOCYTE 1 % (0-0); NEUTROPHILS 56 % (42.0-75.2); NUCLEATED RED BLOOD CELL 1 (0-6); PLATELET ESTIMATE NORMAL (NORMAL)
--- NOTE | 2019-06-02 09:02 | NUR ---
Pt assessment complete and charted. Pt resting in bed with at bedside. Pt denies chest pain, dizziness, vomiting, SOB. C/O mid back pain around spine, rating it 7/10. Received PRN pain medication per DEC. pt states he gets some nausea with IV pain meds, received zofran per DEC. Pt on room air and independent in room. Portacath to right chest w/ D5 1/2NS running with no complications. No other concerns at this time. Call light within reach.
--- NOTE | 2019-06-02 11:26 | NUR ---
Initial visit; Patient and his thanked Pals Specialist for looking in on him and offering encouragement and God's blessings. Pals Specialist will keep Sal in her prayers.
--- NOTE | 2019-06-02 13:23 | NUR ---
Pt sitting in bed, awaiting surgery this afternoon at 1600. Consent signed and procedure explained. All questions answered. No other concerns voiced at this time.
--- NOTE | 2019-06-02 14:02 | NUR ---
SW rounded with the team. A surgical consult was ordered. The pt to have a LEXIS and CT and possible removal of port. SW will continue to follow to ensure a safe discharge.
--- NOTE | 2019-06-02 16:15 | NUR ---
Pt down for procedure by bed with asia from surgery at this time.
--- NOTE | 2019-06-02 18:45 | NUR ---
Pt back from procedure at 1640. New IV started in RFA, 22g, good blood return and flushing with no complications. Rt chest port removed, gauze and tegaderm covering site, CDI. Pt A&O from procedure, still a little sleepy, easily arouses to name. Post op vital check started. VSS have been stable. Pt not complaining of pain at the moment of arriving back to floor. Pt has Lt side colostomy bag that he takes care of himself. No other concerns voiced at this time. Call light within reach. Consent signed for LEXIS procedure in the morning. Report given to LA Mendoza.
--- NOTE | 2019-06-02 20:00 | NUR ---
Pt a little sleepy yet from his procedure. at bedside. Finished eating part of his supper tray. Assessment complete. States he is fairly comfortable at this time. Dressing to upper right chest is clean, dry and intact. Call light in reach. Will continue to monitor.
[2019-06-03] VITALS (10 sets, daily range): BP systolic 103–120; BP diastolic 71–80; PULSE 74–101; TEMP 98–98.6
[2019-06-03 06:34] LABS: HEMOGLOBIN 10.7 g/dl (13.5-18.0); MEAN CELL VOLUME 100 fl (80.0-100.0); MEAN CORPUSCULAR HEMOGLOBIN 32 pg (27.0-31.0); MEAN CORPUSCULAR HGB CONC 32 g/dl (33.0-37.0); MEAN PLATELET VOLUME 10.5 fl (7.4-10.4); PLATELET COUNT 156 K/mm3 (130-400); RED BLOOD COUNT 3.36 M/mm3 (4.20-5.60); REDCELL DISTRIBUTION WIDTH-CV 17.1 % (11.5-14.5)
[2019-06-03 06:40] LABS: HEMATOCRIT 33.6 % (42.0-52.0)
[2019-06-03 06:52] LABS: CALCIUM 9.5 mg/dL (8.4-10.2); CREATININE, serum 1.17 (0.66-1.25); POTASSIUM 3.9 mmol/L (3.4-5.0)
[2019-06-03 07:14] LABS: ANISOCYTOSIS 1+; BASOPHIL 1 % (0-2); EOSINOPHIL 3 % (0-4); HYPOCHROMIA 2+; LYMPHOCYTE 22 % (20.0-51.0); MYELOCYTE 2 % (0-0); NEUTROPHILS 56 % (42.0-75.2); PLATELET ESTIMATE NORMAL (NORMAL)
--- NOTE | 2019-06-03 08:30 | NUR ---
Pt down for LEXIS procedure at this time.
--- NOTE | 2019-06-03 10:51 | NUR ---
Pt assessment completed and charted. Pt had LEXIS procedure this morning. NPO at the moment, drinking contrast for CT this afternoon. Pt c/o midsection abdominal pain and pain where the rt chest portacath was removed. Pt describes pain as "tugging". Dressing is CDI, pain rated at 6/10. Colostomy bag to left side abdomen w/ no complications. RFA INT IV flushes with no complications. Pt on post op vital monitoring, VSS. Pt denies N/V, dizziness, SOB, chest pain. No other concerns voiced at this time other than wanting to eat. Call light within reach, pt at bedside.
[2019-06-03] MEDS ORDERED: CIPRO 500MG TA500 MG PO (14:07)
--- NOTE | 2019-06-03 14:38 | NUR ---
SW followed up with patient about discharge plan. Patient reports he is feeling much better than at admission. Patient is not interested in home health nursing at this time but will consider those services for the future if needed. Patient will possibly discharge today. No discharge needs.
--- NOTE | 2019-06-03 19:39 | NUR ---
Pt had LEXIS and CT of ABD/PELVIS today. NO other complaints voiced. At shift change, during report, this nurse noticed RFA IV w/ VANC running was infiltrating. IV stopped. This nurse attempted new IV site, unsuccessful. aquatic facility manager charge to start new IV. Report given to LA Jauregui. Informed to restart VANC when IV started. Urology consult to Dr. Mahan called, will see patient in morning. No other concerns voiced by patient.
--- NOTE | 2019-06-03 22:44 | NUR ---
Report received from LA Moses. Patient resting in bed. Alert and oriented. Bowels active. Pulses strong. Reports pain /10. PRN dilaudid and zofran given. New IV site was required, started in left upper arm. Vancomycin restarted. Denies any further needs at this time. Call light within reach.
[2019-06-03 23:54] LABS: COLLECTION METHOD CLEAN CATCH
[2019-06-03 23:59] LABS: PH 7 (5-8); SQUAMOUS EPITHELIAL 0-2 /hpf; URINE APPEARANCE Clear; URINE BACTERIA None Seen /hpf; URINE BILIRUBIN Negative (NEGATIVE); URINE BLOOD 2+ (NEGATIVE); URINE COLOR Straw; URINE GLUCOSE Negative (NEGATIVE); URINE KETONE Negative (NEGATIVE); URINE LEUKOCYTE ESTERASE Negative (NEGATIVE); URINE NITRATE Negative (NEGATIVE); URINE PROTEIN(semi-quant) Negative (NEGATIVE); URINE RBC 0-2 /hpf; URINE UROBILINOGEN Negative (NEGATIVE)
[2019-06-04] VITALS (11 sets, daily range): BP systolic 114–146; BP diastolic 75–87; PULSE 78–103; TEMP 97.8–98.9
--- NOTE | 2019-06-04 05:25 | NUR ---
Patient had uneventful night. Requested PRN doses of dilaudid and zofran and oxycodone. Resting in bed. Call light within reach.
--- NOTE | 2019-06-04 06:58 | NUR ---
Report given to LA Moses.
--- NOTE | 2019-06-04 09:00 | NUR ---
Pt assessment completed and charted. Pt c/o abdominal/midsection pain. Rating pain at 6-7/10. Morning medications administered per DEC. Pt received pain medication, flexeril, zofran PRN per DEC. Pt denies dizziness, chest pain, SOB. Pt scheduled for cysto this afternoon. NPO after breakfast. ABRAHAM INT IV flushes with no complications. Colostomy bag on left abdomen w/ no issues, self managed by patient. No other concerns voiced at this time. Call light within reach.
--- NOTE | 2019-06-04 17:13 | NUR ---
Pre op fluids started, patient down for procedure at this time.
--- NOTE | 2019-06-04 18:55 | NUR ---
Pt back from procedure, assisted to bathroom. Pt is A&O. C/o some abdominal pain, also has chronic pain. No new complaints regarding procedure. Pt has steady gait. Pt placed on post op vitals. VSS. No other concerns voiced at this time. Call light within reach. at bedside.
--- NOTE | 2019-06-04 21:15 | NUR ---
Resting in bed. Assessment complete. Lungs diminshed throughout. Heart sounds normal. Bowels active x4. Pulses strong throughout. No edema noted. Rating pain 7/10. Provided with PRN dilaudid and zofran per patient request. IV left upper arm without complications. Prior right chest PAC site CDI with gauze and tegaderm in place. Denies other needs at this time. Call light in reach.
--- NOTE | 2019-06-05 00:40 | NUR ---
Rating pain 7/10. Provided with PRN dilaudid and phenergan at patient request. Denies other needs at this time. Call light in reach.
[2019-06-05 03:09] VITALS: BP 118/80; PULSE 71; TEMP 97.6
--- NOTE | 2019-06-05 07:07 | NUR ---
Patient required PRN dilaudid with zofran/phenergan throughout night for pain and nausea. Otherwise uneventful. Resting in bed this AM with at bedside. Call light in reach.
--- NOTE | 2019-06-05 07:07 | NUR ---
Report given to LA Cordero
--- NOTE | 2019-06-05 07:30 | NUR ---
Pt alert and oriented. Pt rates pain 8/10 abdominal area. Pt given PRN Dilaudid and Phenergan as ordered. Pt remains on IV ABX. Pt left upper arm IV patent no redness or infiltration noted. Pt has spouse at bedside. Pt colostomy cared for independenlty by pt but no redness or irritation noted cyndi stoma bag and bag contains brown soft BM. Pt has call light in reach and denies further needs at this time.
[2019-06-05 07:32] VITALS: BP 117/79; PULSE 76; TEMP 97.4
[2019-06-05 09:12] LABS: HEMOGLOBIN 10.9 g/dl (13.5-18.0); MEAN CELL VOLUME 100 fl (80.0-100.0); MEAN CORPUSCULAR HEMOGLOBIN 31 pg (27.0-31.0); MEAN CORPUSCULAR HGB CONC 31 g/dl (33.0-37.0); PLATELET COUNT 241 K/mm3 (130-400); RED BLOOD COUNT 3.47 M/mm3 (4.20-5.60); REDCELL DISTRIBUTION WIDTH-CV 16.8 % (11.5-14.5)
[2019-06-05 09:16] LABS: HEMATOCRIT 34.7 % (42.0-52.0)
[2019-06-05 09:35] LABS: ALBUMIN 3.9 gm/dL (3.5-5.0); BILIRUBIN,TOTAL 0.4 mg/dL (0.0-1.0); CALCIUM 9.5 mg/dL (8.4-10.2); CREATININE, serum 0.98 (0.66-1.25); POTASSIUM 4.7 mmol/L (3.4-5.0); TOTAL PROTEIN 7.8 gm/dL (6.4-8.2)
[2019-06-05 09:41] LABS: ANISOCYTOSIS 1+; LYMPHOCYTE 16 % (20.0-51.0); METAMYELOCYTE 1 % (0-0); MYELOCYTE 1 % (0-0); NEUTROPHILS 76 % (42.0-75.2); PLATELET ESTIMATE NORMAL (NORMAL)
[2019-06-05 09:42] LABS: HYPOCHROMIA 2+
--- NOTE | 2019-06-05 12:15 | NUR ---
Pt given discharge orders. IV discontinued. Tip intact and no bleeding noted. Pt requests oral pain med before leaving to manage pain on car ride home.
--- NOTE | 2019-06-05 12:30 | NUR ---
Pt given discharge education and new med reviewed and pt to picking tech at [facility]. Pt spouse present for instructions. Pt given oxycodone as ordered for pain management. Pt has no PCP and Kathy MENEZES aware and pt to follow with [facility] as before admission as needed. Pt agrees and denies further needs. Pt has been up to restroom three times this am with no issues reported by patient. Pt escorted out by aide without issue via wheelchair.
== END 2019-06-05 12:30 | disposition home or self-care (01) | DRG 907 ==
LOC: COL.ER 16:13 → ICU 18:32 → MEDICAL 18:32
PROVIDERS: Emergency Medicine; Family Medicine; Internal Medicine; Internal Medicine Pulmonary Disease; Nurse Practitioner Family; Physician Assistant; Urology; ADMIT Hospitalist
PROC: 0W9900Z Drainage of Right Pleural Cavity with Drainage Device, Open Approach (ICD-10-PCS; principal; 2019-06-01)
PROC: 02PY03Z Removal of Infusion Device from Great Vessel, Open Approach (ICD-10-PCS; 2019-06-02)
PROC: BT1FYZZ Fluoroscopy of Left Kidney, Ureter and Bladder using Other Contrast (ICD-10-PCS; 2019-06-04)
PROC: 0T778DZ Dilation of Left Ureter with Intraluminal Device, Via Natural or Artificial Opening Endoscopic (ICD-10-PCS; 2019-06-04 17:45)
DX: T85.9XXA Unspecified complication of internal prosthetic device, implant and graft, initial encounter (principal); A41.51 Sepsis due to Escherichia coli [E. coli]; R65.20 Severe sepsis without septic shock; J90 Pleural effusion, not elsewhere classified; C79.51 Secondary malignant neoplasm of bone; C78.7 Secondary malignant neoplasm of liver and intrahepatic bile duct; N13.30 Unspecified hydronephrosis; E87.6 Hypokalemia; D50.9 Iron deficiency anemia, unspecified; G89.29 Other chronic pain; Y84.6 Urinary catheterization as the cause of abnormal reaction of the patient, or of later complication, without mention of misadventure at the time of the procedure; Y92.9 Unspecified place or not applicable; Z79.891 Long term (current) use of opiate analgesic; Z88.0 Allergy status to penicillin; Z88.6 Allergy status to analgesic agent; Z88.9 Allergy status to unspecified drugs, medicaments and biological substances; Z85.048 Personal history of other malignant neoplasm of rectum, rectosigmoid junction, and anus
CPT/HCPCS: 99222-AI; 99231-AI; 99232-AI; 99233-AI; 99239; A4216; C1769; C2617; J0690; J0692; J1100; J1170; J1450; J1644; J2185; J2405; J2550; J2704; J3010; J3370; J7030; J7050; J7120; Q9967

== ENCOUNTER 2019-09-17 11:00 | Outpatient (RCR) | payer OTHER ==
[2019-06-23 11:06] LABS: MEAN CELL VOLUME 99 fl (80.0-100.0); MEAN CORPUSCULAR HGB CONC 31 g/dl (33.0-37.0); MEAN PLATELET VOLUME 8.6 fl (7.4-10.4); PLATELET COUNT 731 K/mm3 (130-400); RED BLOOD COUNT 3.02 M/mm3 (4.20-5.60); REDCELL DISTRIBUTION WIDTH-CV 16.2 % (11.5-14.5)
[2019-06-23 11:07] LABS: HEMATOCRIT 29.9 % (42.0-52.0); HEMOGLOBIN 9.3 g/dl (13.5-18.0); MEAN CORPUSCULAR HEMOGLOBIN 31 pg (27.0-31.0)
[2019-06-23 11:11] VITALS: BP 119/75; PULSE 103; TEMP 97.9
[2019-06-23 11:18] LABS: ALBUMIN 3.7 gm/dL (3.5-5.0); BILIRUBIN,TOTAL 0.3 mg/dL (0.0-1.0); CALCIUM 9.6 mg/dL (8.4-10.2); CREATININE, serum 0.68 (0.66-1.25); POTASSIUM 4.1 mmol/L (3.4-5.0); TOTAL PROTEIN 7.9 gm/dL (6.4-8.2)
[2019-06-23 11:26] LABS: ANISOCYTOSIS 1+; EOSINOPHIL 8 % (0-4); LYMPHOCYTE 14 % (20.0-51.0); NEUTROPHILS 69 % (42.0-75.2); PLATELET ESTIMATE INCREASED (NORMAL)
[2019-06-27 13:00] VITALS: BP 118/74; PULSE 96; TEMP 98.2
--- NOTE | 2019-06-27 13:10 | NUR ---
Here for cares. with sterile technique left upper arm dressing change done with insertion site cleansed with chloraprep x 1, chlorhexidine impregnate disk applied, skin prep, stat lock, and tegaderm applied. no signs or symptoms of IV complications noted. no concerns voiced. to return next week for cares. voiced understanding of instructions.
[2019-06-27 13:30] LABS: MEAN CELL VOLUME 97 fl (80.0-100.0); MEAN CORPUSCULAR HGB CONC 31 g/dl (33.0-37.0); MEAN PLATELET VOLUME 8.6 fl (7.4-10.4); PLATELET COUNT 718 K/mm3 (130-400); RED BLOOD COUNT 3.13 M/mm3 (4.20-5.60); REDCELL DISTRIBUTION WIDTH-CV 16.2 % (11.5-14.5)
[2019-06-27 13:32] LABS: HEMATOCRIT 30.4 % (42.0-52.0); HEMOGLOBIN 9.5 g/dl (13.5-18.0); MEAN CORPUSCULAR HEMOGLOBIN 30 pg (27.0-31.0)
[2019-06-27 13:41] LABS: ALBUMIN 3.7 gm/dL (3.5-5.0); BILIRUBIN,TOTAL 0.2 mg/dL (0.0-1.0); CREATININE, serum 0.52 (0.66-1.25); POTASSIUM 3.4 mmol/L (3.4-5.0); TOTAL PROTEIN 6.8 gm/dL (6.4-8.2)
[2019-06-27 13:59] LABS: ANISOCYTOSIS 1+; LYMPHOCYTE 8 % (20.0-51.0); NEUTROPHILS 92 % (42.0-75.2); PLATELET ESTIMATE INCREASED (NORMAL)
[2019-06-30 10:52] VITALS: BP 130/79; PULSE 113; TEMP 98
[2019-06-30 11:07] LABS: BILIRUBIN,TOTAL 0.2 mg/dL (0.0-1.0); CALCIUM 9.7 mg/dL (8.4-10.2); CREATININE, serum 0.65 (0.66-1.25); POTASSIUM 4.1 mmol/L (3.4-5.0); TOTAL PROTEIN 8.2 gm/dL (6.4-8.2)
--- NOTE | 2019-07-04 13:00 | NUR ---
Here for cares. PICC intact left upper arm with sterile dressing change done with insertion site cleansed with choraprep x 1, chlorhexidine impregnated disk applied, skin prep, stat lock, and tegaderm applied. no signs or symptoms of IV complications noted. no concerns voiced. re-wrapped with mohinder to protect catheter. to return next week for cares. voiced understanding of instructions.
[2019-07-04 13:58] VITALS: BP 120/83; PULSE 20; TEMP 98.3
[2019-07-04 14:11] LABS: HEMATOCRIT 32.4 % (42.0-52.0); MEAN CELL VOLUME 99 fl (80.0-100.0); MEAN CORPUSCULAR HEMOGLOBIN 31 pg (27.0-31.0); MEAN CORPUSCULAR HGB CONC 31 g/dl (33.0-37.0); MEAN PLATELET VOLUME 9.2 fl (7.4-10.4); PLATELET COUNT 408 K/mm3 (130-400); RED BLOOD COUNT 3.28 M/mm3 (4.20-5.60)
[2019-07-04 14:21] LABS: ALBUMIN 3.7 gm/dL (3.5-5.0); BILIRUBIN,TOTAL 0.3 mg/dL (0.0-1.0); CALCIUM 9.4 mg/dL (8.4-10.2); CREATININE, serum 0.66 (0.66-1.25); POTASSIUM 3.4 mmol/L (3.4-5.0); TOTAL PROTEIN 7.5 gm/dL (6.4-8.2)
[2019-07-04 14:39] LABS: EOSINOPHIL 3 % (0-4); LYMPHOCYTE 6 % (20.0-51.0); NEUTROPHILS 89 % (42.0-75.2)
[2019-07-04 14:40] LABS: ANISOCYTOSIS 2+; PLATELET ESTIMATE NORMAL (NORMAL)
[2019-07-04 14:41] LABS: STOMATOCYTE 1+
[2019-07-11 10:46] VITALS: BP 137/89; PULSE 125; TEMP 98.2
--- NOTE | 2019-07-11 11:00 | NUR ---
here for cares. With sterile technique left upper arm PICC dressing change done with insertion site cleansed with ChloraPrep 1, chlorhexidine impregnated disc applied, skin prep, StatLock, and Tegaderm applied. No signs or symptoms of IV complications noted. No concerns voiced. Arm wrapped with Paxton to protect catheter. Patient to return next week for cares. Patient voiced understanding of instructions.
--- NOTE | 2019-07-16 11:00 | NUR ---
PICC intact left upper arm. Patient is here for cares. With sterile technique left upper arm PICC dressing change done with insertion site cleansed with ChloraPrep times one, chlorhexidine impregnated disc applied, skin prep, StatLock, and Tegaderm applied. No signs or symptoms of IV complications noted. No concerns voiced. Arm wrapped with Paxton to protect catheter. Patient to return next week for cares. Patient voiced understanding of instructions.
[2019-07-16 11:35] LABS: HEMOGLOBIN 10.2 g/dl (13.5-18.0); RED BLOOD COUNT 3.31 M/mm3 (4.20-5.60)
[2019-07-16 11:36] LABS: BILIRUBIN,TOTAL 0.2 mg/dL (0.0-1.0); CALCIUM 9.6 mg/dL (8.4-10.2); CREATININE, serum 0.65 (0.66-1.25); MEAN CELL VOLUME 100 fl (80.0-100.0); MEAN CORPUSCULAR HEMOGLOBIN 31 pg (27.0-31.0); MEAN CORPUSCULAR HGB CONC 31 g/dl (33.0-37.0); MEAN PLATELET VOLUME 8.6 fl (7.4-10.4); PLATELET COUNT 384 K/mm3 (130-400); POTASSIUM 4.2 mmol/L (3.4-5.0); REDCELL DISTRIBUTION WIDTH-CV 17.9 % (11.5-14.5); TOTAL PROTEIN 8.1 gm/dL (6.4-8.2)
[2019-07-16 11:38] LABS: HEMATOCRIT 33.1 % (42.0-52.0)
[2019-07-16 11:41] VITALS: BP 120/86; PULSE 121; TEMP 98.4
[2019-07-16 14:32] LABS: BAND 1 % (0-10); LYMPHOCYTE 4 % (20.0-51.0); NEUTROPHILS 92 % (42.0-75.2); PLATELET ESTIMATE NORMAL (NORMAL)
[2019-07-23 13:39] VITALS: BP 121/88; PULSE 85; TEMP 97.9
--- NOTE | 2019-07-30 13:00 | NUR ---
Here for cares. with sterile technique left upper arm PICC dressing change done with insertion site cleansed with chloraprep x 1, chlorhexidine impregnated disk, stat lock, skin prep, and tegaderm applied. no signs or symptoms of IV complications noted. no concerns voiced. re-wrapped with mohinder to protect catheter. to return next week for cares. voiced understanding of instructions.
[2019-07-30 13:15] VITALS: BP 136/86; PULSE 101; TEMP 98.1
[2019-07-30 13:16] LABS: HEMOGLOBIN 11.3 g/dl (13.5-18.0); MEAN CELL VOLUME 101 fl (80.0-100.0); MEAN CORPUSCULAR HEMOGLOBIN 31 pg (27.0-31.0); MEAN CORPUSCULAR HGB CONC 31 g/dl (33.0-37.0); MEAN PLATELET VOLUME 8.6 fl (7.4-10.4); PLATELET COUNT 351 K/mm3 (130-400); RED BLOOD COUNT 3.63 M/mm3 (4.20-5.60)
[2019-07-30 13:19] LABS: HEMATOCRIT 36.7 % (42.0-52.0)
[2019-07-30 13:33] LABS: ALBUMIN 3.9 gm/dL (3.5-5.0); BILIRUBIN,TOTAL 0.3 mg/dL (0.0-1.0); CALCIUM 9.7 mg/dL (8.4-10.2); CREATININE, serum 0.77 (0.66-1.25); POTASSIUM 3.9 mmol/L (3.4-5.0); TOTAL PROTEIN 7.8 gm/dL (6.4-8.2)
[2019-07-30 13:49] LABS: LYMPHOCYTE 16 % (20.0-51.0); NEUTROPHILS 81 % (42.0-75.2); PLATELET ESTIMATE NORMAL (NORMAL)
--- NOTE | 2019-08-06 13:50 | NUR ---
here for cares. With sterile technique left upper arm PICC dressing change donewith insertion site cleansed with ChloraPrep 1, chlorhexidine impregnated disc applied, skin prep, StatLock, and Tegaderm applied. No signs or symptoms of IV complications noted. No concerns voiced. Arm wrapped with Paxton to protect catheter. Patient to return next week for cares. Patient voiced understanding of instructions.
[2019-08-06 13:53] VITALS: BP 115/87; PULSE 99; TEMP 98.3
[2019-08-13 14:17] LABS: HEMOGLOBIN 11.1 g/dl (13.5-18.0); MEAN CELL VOLUME 99 fl (80.0-100.0); MEAN CORPUSCULAR HEMOGLOBIN 31 pg (27.0-31.0); MEAN CORPUSCULAR HGB CONC 32 g/dl (33.0-37.0); MEAN PLATELET VOLUME 9.2 fl (7.4-10.4); PLATELET COUNT 364 K/mm3 (130-400); RED BLOOD COUNT 3.53 M/mm3 (4.20-5.60); REDCELL DISTRIBUTION WIDTH-CV 17.4 % (11.5-14.5)
[2019-08-13 14:18] VITALS: BP 141/88; PULSE 103; TEMP 98.2
[2019-08-13 14:29] LABS: BILIRUBIN,TOTAL 0.2 mg/dL (0.0-1.0); CALCIUM 9.7 mg/dL (8.4-10.2); CREATININE, serum 0.66 (0.66-1.25); POTASSIUM 3.8 mmol/L (3.4-5.0); TOTAL PROTEIN 7.8 gm/dL (6.4-8.2)
[2019-08-13 14:39] LABS: EOSINOPHIL 1 % (0-4); LYMPHOCYTE 13 % (20.0-51.0); NEUTROPHILS 77 % (42.0-75.2); PLATELET ESTIMATE NORMAL (NORMAL)
[2019-08-13 14:40] LABS: ANISOCYTOSIS 1+
--- NOTE | 2019-08-13 15:00 | NUR ---
Here for cares. PICC intact left upper arm with sterile dressing change done with insertion site cleansed with chloraprep x 1, chlorhexidine impregnated disk applied, skin prep, stat lock, and tegaderm applied. no signs or symptoms of IV complications noted. no concerns voiced. re-wrapped with mohinder to protect catheter. patient to return next week for cares. voiced understanding of instructions.
[2019-08-20 13:12] VITALS: BP 126/76; PULSE 109; TEMP 98.3
[2019-08-27 11:29] VITALS: BP 145/91; PULSE 110; TEMP 97.8
--- NOTE | 2019-08-27 11:30 | NUR ---
here for cares. With sterile technique left upper arm dressing change done to PICC line with insertion site cleansed with ChloraPrep 1, chlorhexidine impregnated disc applied, skin prep, StatLock, and Tegaderm applied. No signs or symptoms of IV complications noted. No concerns voiced. Patient to return next week for cares. Patient voiced understanding of instructions.
[2019-08-27 11:34] LABS: HEMOGLOBIN 11.1 g/dl (13.5-18.0); MEAN CELL VOLUME 101 fl (80.0-100.0); MEAN CORPUSCULAR HEMOGLOBIN 32 pg (27.0-31.0); MEAN CORPUSCULAR HGB CONC 31 g/dl (33.0-37.0); MEAN PLATELET VOLUME 8.9 fl (7.4-10.4); PLATELET COUNT 265 K/mm3 (130-400)
[2019-08-27 11:40] LABS: HEMATOCRIT 35.4 % (42.0-52.0)
[2019-08-27 11:47] LABS: ALBUMIN 3.8 gm/dL (3.5-5.0); BILIRUBIN,TOTAL 0.3 mg/dL (0.0-1.0); CALCIUM 9.4 mg/dL (8.4-10.2); CREATININE, serum 0.73 (0.66-1.25); POTASSIUM 3.5 mmol/L (3.4-5.0); TOTAL PROTEIN 7.3 gm/dL (6.4-8.2)
[2019-08-27 11:59] LABS: BAND 1 % (0-10); EOSINOPHIL 1 % (0-4); LYMPHOCYTE 17 % (20.0-51.0); MYELOCYTE 1 % (0-0); NEUTROPHILS 70 % (42.0-75.2)
[2019-08-27 12:02] LABS: ANISOCYTOSIS 1+; PLATELET ESTIMATE NORMAL (NORMAL)
[2019-09-03 11:40] VITALS: BP 133/92; PULSE 89; TEMP 98
--- NOTE | 2019-09-03 11:45 | NUR ---
Here for cares. PICC intact left upper arm with sterile technique PICC dressing change done with insertion site cleansed with ChloraPrep 1, chlorhexidine impregnated disc applied, skin prep, StatLock, and Tegaderm applied. No signs or symptoms of IV complications noted. No concerns voiced. Arm wrapped with Paxton to protect catheter. Patient to return next week for cares. Patient voiced understanding of instructions.
--- NOTE | 2019-09-10 11:00 | NUR ---
Here for cares. PICC intact left upper arm with sterile dressing change done with insertion site cleansed with chloraprep x 1, chlorhexidine impregnated disk, skin prep, stat lock, and tegaderm applied. no signs or symptoms of IV complications noted. no concerns voiced. re-wrapped with mohinder to protect catheter. to return next week for cares. voiced understanding of instructions.
[2019-09-10 11:49] VITALS: BP 124/72; BP 126/77; PULSE 114; TEMP 98.4
[2019-09-10 11:52] LABS: HEMOGLOBIN 11.1 g/dl (13.5-18.0); MEAN CELL VOLUME 101 fl (80.0-100.0); MEAN CORPUSCULAR HEMOGLOBIN 32 pg (27.0-31.0); MEAN CORPUSCULAR HGB CONC 32 g/dl (33.0-37.0); MEAN PLATELET VOLUME 8.4 fl (7.4-10.4); PLATELET COUNT 280 K/mm3 (130-400); RED BLOOD COUNT 3.43 M/mm3 (4.20-5.60); REDCELL DISTRIBUTION WIDTH-CV 17.5 % (11.5-14.5)
[2019-09-10 11:58] LABS: HEMATOCRIT 34.7 % (42.0-52.0)
[2019-09-10 12:13] LABS: ALBUMIN 3.7 gm/dL (3.5-5.0); BILIRUBIN,TOTAL 0.3 mg/dL (0.0-1.0); CALCIUM 9.4 mg/dL (8.4-10.2); CREATININE, serum 0.78 (0.66-1.25); TOTAL PROTEIN 7.3 gm/dL (6.4-8.2)
[2019-09-10 12:45] LABS: BAND 4 % (0-10); BASOPHIL 1 % (0-2); EOSINOPHIL 4 % (0-4); HYPOCHROMIA 1+; LYMPHOCYTE 23 % (20.0-51.0); METAMYELOCYTE 1 % (0-0); MYELOCYTE 1 % (0-0); NEUTROPHILS 61 % (42.0-75.2); PLATELET ESTIMATE NORMAL (NORMAL)
[~2019-09-17] VITALS: Ht 167.6 cm; Wt 46.8 kg
[~2019-09-17 11:00] MED LIST changes: +CIPRO 500MG TA500 MG PO; +DAZIDOX10 MG PO; +FENTANYL 25 MCG TD; +FLEXERIL 1010 MG/TAB PO; +NEURONTIN300 MG/CAP PO
[2019-09-17 12:31] VITALS: BP 111/80; PULSE 100; TEMP 98.4
== END 2019-09-21 | disposition home or self-care (01) ==
LOC: EUO
PROVIDERS: Internal Medicine
DX: C20 Malignant neoplasm of rectum (principal)
CPT/HCPCS: C1751

== ENCOUNTER 2019-10-02 11:00 | Outpatient (RCR) | payer OTHER ==
--- NOTE | 2019-09-25 10:15 | NUR ---
Here for cares. with sterile technique left upper arm PICC dressing change done with insertion site cleansed with chloraprep x 1, chlorhexidine impregnated disk applied, skin prep, stat lock, and tegaderm applied. no signs or symptoms of IV complications noted. no concerns voiced. re-wrapped with mohinder to protect catheter. to return next week for cares. voiced understanding of instructions.
[2019-09-25 10:21] VITALS: BP 131/84; PULSE 107; TEMP 97.7
[2019-09-25 11:04] LABS: HEMOGLOBIN 11.1 g/dl (13.5-18.0); MEAN CELL VOLUME 103 fl (80.0-100.0); MEAN CORPUSCULAR HEMOGLOBIN 32 pg (27.0-31.0); MEAN CORPUSCULAR HGB CONC 31 g/dl (33.0-37.0); MEAN PLATELET VOLUME 8.7 fl (7.4-10.4); PLATELET COUNT 388 K/mm3 (130-400); RED BLOOD COUNT 3.43 M/mm3 (4.20-5.60); REDCELL DISTRIBUTION WIDTH-CV 16.7 % (11.5-14.5)
[2019-09-25 11:10] LABS: HEMATOCRIT 35.3 % (42.0-52.0)
[2019-09-25 12:06] LABS: ALBUMIN 3.7 gm/dL (3.5-5.0); BILIRUBIN,TOTAL 0.2 mg/dL (0.0-1.0); CALCIUM 9.2 mg/dL (8.4-10.2); CREATININE, serum 0.83 (0.66-1.25); POTASSIUM 3.7 mmol/L (3.4-5.0); TOTAL PROTEIN 7.2 gm/dL (6.4-8.2)
[2019-09-25 12:40] LABS: BAND 2 % (0-10); EOSINOPHIL 4 % (0-4); MYELOCYTE 2 % (0-0); NEUTROPHILS 62 % (42.0-75.2)
[2019-09-25 12:46] LABS: LYMPHOCYTE 19 % (20.0-51.0)
[2019-09-25 12:53] LABS: ANISOCYTOSIS 1+
[2019-09-25 12:54] LABS: PLATELET ESTIMATE NORMAL (NORMAL)
[2019-09-26 07:56] LABS: PATHOLOGY DIFF REVIEW OK
[~2019-10-02] VITALS: Ht 167.6 cm; Wt 59.1 kg
[2019-10-02 11:39] VITALS: BP 121/75; PULSE 99; TEMP 98
== END 2019-10-09 10:47 | disposition home or self-care (01) ==
LOC: EUO 11:00
PROVIDERS: Internal Medicine
DX: C20 Malignant neoplasm of rectum (principal)

== ENCOUNTER 2019-11-25 13:09 | Day surgery (SDC) | payer OTHER ==
[~2019-11-25] VITALS: Ht 167.6 cm; Wt 54.2 kg
[2019-11-25 13:29] VITALS: BP 124/82; PULSE 105; TEMP 97.5
[2019-11-25] MEDS ORDERED: FENTANYL 50MCG TD (13:46)
[2019-11-25] MEDS ORDERED: ATIVAN 0.50.5 MG/TAB PO (13:48)
--- NOTE | 2019-11-25 14:36 | NUR ---
Initial visit; Patient thanked Automotive Sales Specialist for offering encouragement and prayer prior to his surgical procedure.
[2019-11-25 15:50] VITALS: BP 115/78; PULSE 86; TEMP 97.7
--- NOTE | 2019-11-25 15:50 | NUR ---
The patient arrived back to [facility] from the recovery room at this time. The patient appears drowsy but arouses easily to his name. The patient requests to try some cranberry juice at this time. Post operative vital signs were started at this time. brought back to be at his bedside. The patient denies any pain or nauesa at this time. Call light is within reach. Will continue to monitor the patient.
[2019-11-25 16:05] VITALS: BP 115/80; PULSE 92
--- NOTE | 2019-11-25 16:10 | NUR ---
The patient is eating a magda candy and appears to be tolerating it well. He has not tried his cranberry juice yet. His remains at his bedside. Will continue to monitor the patient.
[2019-11-25 16:20] VITALS: BP 108/77; PULSE 80
--- NOTE | 2019-11-25 16:25 | NUR ---
The patient appears to be tolerating the juice well and continues to deny any nausea/vomiting. The patient's vital signs appear stable. The nurse instructed the patient the last requirement he has to fulfill before discharge is to void and he wants to try with his next vital sign check. The patient's remains at his bedside. Will continue to monitor the patient.
[2019-11-25 16:35] VITALS: BP 111/74; PULSE 91
--- NOTE | 2019-11-25 16:40 | NUR ---
The patient ambulated to the bathroom with the stand by assistance of one nurse and appeared to tolerate the activity well. The nurse informed the patient and his that if the patient is sucessful in voiding he can get dressed and press his call light when he is ready to review his discharge instructions.
--- NOTE | 2019-11-25 17:00 | NUR ---
The patient is dressed after successfully voiding and voices a desire to be discharged home. Discharge instructions were reviewed with the patient and his . They both verbalized understanding and have no questions for the nurse at this time. The patient's PICC line was flushed prior to discharge.
--- NOTE | 2019-11-25 17:05 | NUR ---
The patient was escorted out via wheelchair to private vehicle by LA Helton. The patient's is present to drive him home. The patient's belongings and discharge paperwork were sent with him.
[2019-11-25 17:14] VITALS: BP 116/78; PULSE 85; TEMP 99.7
== END 2019-11-25 17:05 | disposition home or self-care (01) ==
LOC: SDCO 13:09
DX: N13.1 Hydronephrosis with ureteral stricture, not elsewhere classified (principal); Z79.899 Other long term (current) drug therapy; F41.9 Anxiety disorder, unspecified; K21.9 Gastro-esophageal reflux disease without esophagitis; G89.29 Other chronic pain; Z88.5 Allergy status to narcotic agent; Z88.0 Allergy status to penicillin; C19 Malignant neoplasm of rectosigmoid junction
CPT/HCPCS: C1769; C2617; J0690; J2704; J3010; J7120

== ENCOUNTER 2020-04-07 11:00 | Outpatient (RCR) | payer OTHER ==
[2020-01-14 11:54] VITALS: BP 111/71; PULSE 93; TEMP 98.6
--- NOTE | 2020-01-14 12:00 | NUR ---
Here for cares. with sterile technique left upper arm PICC dressing change done with insertion site cleansed with chloraprep x 1, chlohexidine impregnated disk applied, skin prep, stat lock, and tegaderm applied. no signs or symptoms of IV complications noted. no concerns voiced. re-wrapped with mohinder to protect catheter.
[2020-01-21 12:45] VITALS: BP 112/73; PULSE 112; TEMP 98
[2020-01-21 13:25] LABS: HEMATOCRIT 37.1 % (42.0-52.0); HEMOGLOBIN 11.5 g/dl (13.5-18.0); MEAN CELL VOLUME 103 fl (80.0-100.0); MEAN CORPUSCULAR HEMOGLOBIN 32 pg (27.0-31.0); MEAN CORPUSCULAR HGB CONC 31 g/dl (33.0-37.0); MEAN PLATELET VOLUME 8.8 fl (7.4-10.4); PLATELET COUNT 415 K/mm3 (130-400); REDCELL DISTRIBUTION WIDTH-CV 14.7 % (11.5-14.5)
[2020-01-21 13:42] LABS: ALBUMIN 3.7 gm/dL (3.5-5.0); BILIRUBIN,TOTAL 0.2 mg/dL (0.0-1.0); CALCIUM 9.4 mg/dL (8.4-10.2); CREATININE, serum 0.56 (0.66-1.25); POTASSIUM 4.1 mmol/L (3.4-5.0); TOTAL PROTEIN 7.2 gm/dL (6.4-8.2)
[2020-01-21 14:32] LABS: ANISOCYTOSIS 2+; EOSINOPHIL 4 % (0-4); LYMPHOCYTE 9 % (20.0-51.0); NEUTROPHILS 78 % (42.0-75.2); PLATELET ESTIMATE INCREASED (NORMAL)
[2020-01-28 11:33] VITALS: BP 129/76; PULSE 92; TEMP 98.2
--- NOTE | 2020-01-28 11:40 | NUR ---
Here for cares. PICC intact left upper arm with sterile dressing change done with insertion site cleansed with chloraprep x 1, chlorhexidine impregnated disk applied, skin prep, stat lock, and tegaderm applied. no signs or symptoms of IV complications noted. no concerns voiced. re-wrapped with mohinder to protect catheter. to return next week for cares. voiced understanding of instructions.
[2020-02-04 11:48] VITALS: BP 101/70; PULSE 110; TEMP 99.4
[2020-02-04 12:05] LABS: HEMATOCRIT 50.3 % (42.0-52.0); HEMOGLOBIN 15.9 g/dl (13.5-18.0); MEAN CELL VOLUME 101 fl (80.0-100.0); MEAN CORPUSCULAR HEMOGLOBIN 32 pg (27.0-31.0); MEAN CORPUSCULAR HGB CONC 32 g/dl (33.0-37.0); MEAN PLATELET VOLUME 9.3 fl (7.4-10.4); PLATELET COUNT 300 K/mm3 (130-400); RED BLOOD COUNT 4.97 M/mm3 (4.20-5.60); REDCELL DISTRIBUTION WIDTH-CV 13.6 % (11.5-14.5)
[2020-02-04 12:32] LABS: ALBUMIN 3.7 gm/dL (3.5-5.0); BILIRUBIN,TOTAL 0.3 mg/dL (0.0-1.0); CALCIUM 9.5 mg/dL (8.4-10.2); CREATININE, serum 0.45 (0.66-1.25); MAGNESIUM 1.8 mg/dL (1.6-2.3); POTASSIUM 3.8 mmol/L (3.4-5.0); TOTAL PROTEIN 7.4 gm/dL (6.4-8.2)
[2020-02-04 13:00] LABS: BAND 3 % (0-10); EOSINOPHIL 6 % (0-4); LYMPHOCYTE 7 % (20.0-51.0); NEUTROPHILS 76 % (42.0-75.2); PLATELET ESTIMATE NORMAL (NORMAL)
[2020-02-11 11:55] VITALS: BP 110/78; PULSE 97; TEMP 98.4
--- NOTE | 2020-02-11 12:00 | NUR ---
Here for cares. with sterile technique left upper arm PICC dressing change done with insertion site cleansed with chloraprep x 1, chlorhexidine impregnated disk applied, skin prep, stat lock, and tegaderm applied. no signs or symptoms of IV complications noted. re-wrapped with mohinder to protect catheter. to return next week for cares. voiced understanding of instructions.
[2020-02-18 11:30] VITALS: BP 105/69; PULSE 103; TEMP 98.7
--- NOTE | 2020-02-18 11:40 | NUR ---
here for cares. With sterile technique left upper arm PICC dressing change done with site cleansed with ChloraPrep 1, chlorhexidine impregnated disc applied, skin prep, StatLock, and Tegaderm applied. No signs or symptoms of IV complications noted. No concerns voiced. Arm wrapped with Paxton to protect catheter. Return next week for cares. Patient voiced understanding of instructions
[2020-02-18 12:23] LABS: HEMOGLOBIN 10.9 g/dl (13.5-18.0); MEAN CELL VOLUME 102 fl (80.0-100.0); MEAN CORPUSCULAR HEMOGLOBIN 31 pg (27.0-31.0); MEAN CORPUSCULAR HGB CONC 30 g/dl (33.0-37.0); MEAN PLATELET VOLUME 8.9 fl (7.4-10.4); PLATELET COUNT 385 K/mm3 (130-400); RED BLOOD COUNT 3.51 M/mm3 (4.20-5.60); REDCELL DISTRIBUTION WIDTH-CV 13.4 % (11.5-14.5)
[2020-02-18 12:26] LABS: HEMATOCRIT 35.8 % (42.0-52.0)
[2020-02-18 12:37] LABS: ALBUMIN 3.6 gm/dL (3.5-5.0); BILIRUBIN,TOTAL 0.4 mg/dL (0.0-1.0); CALCIUM 9.2 mg/dL (8.4-10.2); CREATININE, serum 0.51 (0.66-1.25); MAGNESIUM 1.8 mg/dL (1.6-2.3); POTASSIUM 3.8 mmol/L (3.4-5.0); TOTAL PROTEIN 6.9 gm/dL (6.4-8.2)
[2020-02-18 13:47] LABS: BAND 1 % (0-10); EOSINOPHIL 7 % (0-4); LYMPHOCYTE 9 % (20.0-51.0); NEUTROPHILS 73 % (42.0-75.2); PLATELET ESTIMATE NORMAL (NORMAL)
--- NOTE | 2020-02-25 11:20 | NUR ---
here for cares. With sterile technique left upper arm PICC dressing change done with insertion site cleansed with ChloraPrep 1, chlorhexidine impregnated disc applied, skin prep, StatLock, and Tegaderm applied. No signs or symptoms of IV complications noted. No concerns voiced. Patient to return next week for cares. Patient voiced understanding of instructions.
[2020-02-25 11:25] VITALS: BP 99/63; PULSE 93; TEMP 98
[2020-03-03 11:00] VITALS: BP 109/76; PULSE 107; TEMP 98.9
--- NOTE | 2020-03-03 11:50 | NUR ---
here for cares. With sterile technique left upper arm PICC dressing change done with insertion site cleansed with ChloraPrep 1, chlorhexidine impregnated disc applied, skin prep, StatLock, and Tegaderm applied. No signs or symptoms of IV complications noted. No concerns voiced. patient to return next week for cares. Patient voiced understanding of instructions.
[2020-03-03 11:53] LABS: HEMOGLOBIN 10.5 g/dl (13.5-18.0); MEAN CELL VOLUME 101 fl (80.0-100.0); MEAN CORPUSCULAR HEMOGLOBIN 31 pg (27.0-31.0); MEAN CORPUSCULAR HGB CONC 31 g/dl (33.0-37.0); MEAN PLATELET VOLUME 9.1 fl (7.4-10.4); PLATELET COUNT 392 K/mm3 (130-400); REDCELL DISTRIBUTION WIDTH-CV 12.8 % (11.5-14.5)
[2020-03-03 11:56] LABS: HEMATOCRIT 34.3 % (42.0-52.0)
[2020-03-03 12:02] LABS: ALBUMIN 3.6 gm/dL (3.5-5.0); BILIRUBIN,TOTAL 0.4 mg/dL (0.0-1.0); CALCIUM 9.3 mg/dL (8.4-10.2); CREATININE, serum 0.63 (0.66-1.25); MAGNESIUM 1.7 mg/dL (1.6-2.3); POTASSIUM 3.6 mmol/L (3.4-5.0); TOTAL PROTEIN 7.2 gm/dL (6.4-8.2)
[2020-03-03 12:28] LABS: EOSINOPHIL 7 % (0-4); LYMPHOCYTE 10 % (20.0-51.0); NEUTROPHILS 71 % (42.0-75.2); PLATELET ESTIMATE NORMAL (NORMAL)
[2020-03-10 11:47] VITALS: BP 104/60; PULSE 94; TEMP 98.5
--- NOTE | 2020-03-10 11:50 | NUR ---
here for cares. With sterile technique left upper arm PICC dressing change done with insertion site cleansed with ChloraPrep 1, chlorhexidine impregnated disc applied, skin prep, StatLock, and Tegaderm applied. No signs or symptoms of IV complications noted. No concerns voiced. Wrapped With Paxton to protect catheter. Patient to return as scheduled in the express unit for cares. Patient voiced understanding of instructions.
[2020-03-17 11:54] LABS: MEAN CELL VOLUME 98 fl (80.0-100.0); MEAN CORPUSCULAR HEMOGLOBIN 30 pg (27.0-31.0); MEAN CORPUSCULAR HGB CONC 31 g/dl (33.0-37.0); MEAN PLATELET VOLUME 8.8 fl (7.4-10.4); PLATELET COUNT 396 K/mm3 (130-400); RED BLOOD COUNT 3.63 M/mm3 (4.20-5.60); REDCELL DISTRIBUTION WIDTH-CV 12.8 % (11.5-14.5)
[2020-03-17 11:55] LABS: HEMATOCRIT 35.7 % (42.0-52.0)
[2020-03-17 12:06] LABS: ALBUMIN 3.6 gm/dL (3.5-5.0); BILIRUBIN,TOTAL 0.3 mg/dL (0.0-1.0); CALCIUM 9.4 mg/dL (8.4-10.2); CREATININE, serum 0.59 (0.66-1.25); MAGNESIUM 1.7 mg/dL (1.6-2.3); POTASSIUM 3.5 mmol/L (3.4-5.0); TOTAL PROTEIN 7.1 gm/dL (6.4-8.2)
[2020-03-17 12:16] VITALS: BP 98/60; PULSE 109; TEMP 98.3
[2020-03-17 12:53] LABS: EOSINOPHIL 9 % (0-4); LYMPHOCYTE 15 % (20.0-51.0); NEUTROPHILS 68 % (42.0-75.2)
[2020-03-17 12:55] LABS: TARGET CELLS 1+
[2020-03-24 11:00] VITALS: BP 114/77; PULSE 97; TEMP 98.3
--- NOTE | 2020-03-24 11:00 | NUR ---
here for cares. With sterile technique left upper arm PICC dressing change done with insertion site cleansed with ChloraPrep 1, chlorhexidine impregnated disc applied, skin prep, StatLock, and Tegaderm applied. No signs or symptoms of IV complications noted. No concerns voiced. Patient to return to express unit next week for cares. Patient voiced understanding of instructions.
--- NOTE | 2020-03-31 12:15 | NUR ---
Here for cares. with sterile technique left upper arm PICC dressing change done with insertion site cleansed with chloraprep x 1, chlorhexidine impregnated disk applied, skin prep, stat lock, and tegaderm applied. no signs or symptoms of IV complications noted. no concerns voiced. to return next week for cares. voiced understanding of instructions.
[2020-03-31 12:19] VITALS: BP 123/85; PULSE 103; TEMP 98.5
[2020-03-31 12:23] LABS: HEMOGLOBIN 11.3 g/dl (13.5-18.0); MEAN CELL VOLUME 97 fl (80.0-100.0); MEAN CORPUSCULAR HEMOGLOBIN 30 pg (27.0-31.0); MEAN CORPUSCULAR HGB CONC 31 g/dl (33.0-37.0); MEAN PLATELET VOLUME 9.2 fl (7.4-10.4); PLATELET COUNT 416 K/mm3 (130-400); REDCELL DISTRIBUTION WIDTH-CV 13.2 % (11.5-14.5)
[2020-03-31 12:30] LABS: ALBUMIN 3.8 gm/dL (3.5-5.0); BILIRUBIN,TOTAL 0.4 mg/dL (0.0-1.0); CALCIUM 9.8 mg/dL (8.4-10.2); CREATININE, serum 0.66 (0.66-1.25); MAGNESIUM 1.5 mg/dL (1.6-2.3); POTASSIUM 3.9 mmol/L (3.4-5.0); TOTAL PROTEIN 7.5 gm/dL (6.4-8.2)
[2020-03-31 13:29] LABS: ANISOCYTOSIS 1+; BAND 4 % (0-10); BASOPHIL 2 % (0-2); EOSINOPHIL 4 % (0-4); HYPERSEGMENTED POLYS PRESENT; LYMPHOCYTE 6 % (20.0-51.0); NEUTROPHILS 74 % (42.0-75.2); PLATELET ESTIMATE INCREASED (NORMAL)
[~2020-04-07] VITALS: Ht 167.6 cm; Wt 55.0 kg
[~2020-04-07 11:00] MED LIST changes: +ATIVAN 0.50.5 MG/TAB PO; +FENTANYL 100MCG; +FENTANYL 100MCG TD; +magnesium PO
[2020-04-07 11:30] VITALS: BP 107/79; PULSE 131; TEMP 98.4
== END 2020-04-13 | disposition home or self-care (01) ==
LOC: EUO
PROVIDERS: Internal Medicine
DX: C20 Malignant neoplasm of rectum (principal); C77.2 Secondary and unspecified malignant neoplasm of intra-abdominal lymph nodes; C78.01 Secondary malignant neoplasm of right lung; C78.02 Secondary malignant neoplasm of left lung; C78.6 Secondary malignant neoplasm of retroperitoneum and peritoneum; C78.7 Secondary malignant neoplasm of liver and intrahepatic bile duct; C79.51 Secondary malignant neoplasm of bone
CPT/HCPCS: J2997